=== PATIENT | male | born 1985 ===

== ENCOUNTER 2018-11-12 02:05 | Day surgery (SDC) | payer OTHER ==
[~2018-11-12] VITALS: Ht 185.4 cm; Wt 90.7 kg
[~2018-11-12 02:05] MED LIST: ALUMINUM PO; MULT1CAP59 PO
[2018-11-12] MEDS ORDERED: fentaNYL CITR 100 MCG/2 ML AMP ONE ×2 (12:15→15:59)
[2018-11-12] MEDS ORDERED: ONDANSETRON 4 MG/2 ML VIAL ONE (12:15)
[2018-11-12] MEDS ORDERED: DEXAMETHASONE SOD 4 MG/ML VIAL ONE (12:15)
[2018-11-12] MEDS ORDERED: LIDOCAINE MPF 1% 5 ML VIAL ONE (12:15)
[2018-11-12] MEDS ORDERED: PROPOFOL EMUL(*) 10MG/ML 20 ML 20 ML ONE (12:15)
[2018-11-12] MEDS ORDERED: KETAMINE HCL 200 MG/20 ML MDV ONE (12:16)
[2018-11-12] MEDS: NORMOSOL R SOLN(*) 1000 ML BAG 1,000 ML IV PRN ×2 (12:50→14:24)
[2018-11-12] MEDS ORDERED: CELECOXIB 200 MG CAP PO ONE (13:30)
[2018-11-12] MEDS ORDERED: MIDAZOLAM 2 MG/2 ML VIAL IVP PRN (13:30)
[2018-11-12] MEDS ORDERED: ceFAZolin(*) 2GM/D5W 50ML 50 ML IVPB ONE (13:30)
[2018-11-12] MEDS ORDERED: FAMOTIDINE 20 MG TAB PO ONE (13:30)
[2018-11-12] MEDS ORDERED: LIDOCAINE/SOD BICARB 8.4% SYR ID ONE (13:30)
[2018-11-12 13:43] VITALS: BP 116/68
[2018-11-12] MEDS ORDERED: ROPIVACAINE 0.2% 20 ML VIAL ONE (14:22)
[2018-11-12] MEDS ORDERED: HYDR-653 PO (15:47)
[2018-11-12] MEDS ORDERED: APAP/HYDROCODONE 325/5 TAB ONE ×2 (16:21→16:22)
[2018-11-12 16:45] VITALS: BP 131/84
[2018-11-12 16:49] VITALS: BP 121/79
--- NOTE | 2018-11-12 16:52 | OPERATIVE REPORT 1 ---
EVENT DATE: November 12, 2018 SURGEON: Cricket Reeder MD ANESTHESIOLOGIST: Alejo Love MD ANESTHESIA: General LMA. TENONER OPERATOR: ZENOBIA Stacy PREOPERATIVE DIAGNOSIS Left fifth finger proximal interphalangeal joint fracture of the distal portion of the proximal phalanx, which was intra-articular and displaced. POSTOPERATIVE DIAGNOSIS Left fifth finger proximal interphalangeal joint fracture of the distal portion of the proximal phalanx, which was intra-articular and displaced. PROCEDURE PERFORMED Closed reduction and percutaneous pinning of the left proximal phalanx fracture at the distal end at the level of the proximal interphalangeal joint, which was intra-articular. FINDINGS The patient had a displaced intra-articular fracture that we were able to reduce closed. ESTIMATED BLOOD LOSS Minimal. DRAINS None. COMPLICATIONS None. IMPLANTS USED Two 0.054 K-wires. SPECIMENS None. TOURNIQUET TIME Not applicable. INDICATIONS AND HISTORY This patient is a 33-year-old male who 3-1/2 to four weeks ago was playing volleyball and jammed his finger. He initially went in, and they told him just to watch it for a while, and when he was not getting better over three or four days and it was starting to angle, they had him come in to see us. An x-ray revealed that he had a fracture that was intra-articular of the distal portion of the proximal phalanx into the level of the PIP joint, and so therefore, we talked about the implications of this as well as the risks and benefits associated with surgery and wanted to go ahead with an attempt at a closed reduction and percutaneous pinning associated with this. I think that was very reasonable secondarily due to the fact that it did seem to still move, and the fracture line was still visible on the x-rays. So therefore, we talked about the implications of this and risks and benefits, and informed consent was obtained at the last visit. We told him he may still have some angulation associated with it, and he says he is okay with that. DESCRIPTION OF PROCEDURE As the patient was brought in the operating room, he and the procedure were both verified. He was placed supine on the operating table and induced and intubated by Anesthesia. The left upper extremity was then prepped and draped in the usual fashion. A timeout was observed verifying the correct patient and procedure. First, initial x-rays were taken showing the depressed fragment on the radial side of the distal aspect of the proximal phalanx on the fifth finger and a little bit of displacement in the sagittal plane. We were then able to perform a closed reduction and get it back up into a more natural state. We also were able to straighten the finger fully with a closed manipulation associated with this. Once I was able to do this, I was then able to put a pin from a radial to ulnar direction through the condyles in order to pin it in place. This then restored the condylar aspect. He did still have some angle associated with the finger, but we left this in place as the bone was in adequate reduction. I then put a second pin from a radial to ulnar direction, verifying that it was in good position and then verifying on the C-arm images that everything was in excellent position associated with it. I then cut and bent the pins. Final C-arm images were taken, and then we did put the hand through a flexion and extension movement. It did show a little bit of rotation at the MCP joint, not at the PIP joint before going in, so we splinted him with a spacer in between these two to try and keep the rotational aspects better. We dressed everything with Xeroform gauze 4 x 4's and then anesthetized the finger with a lidocaine block and then put him in an ulnar gutter splint with once again the finger derotated to try to help this out at the MCP joint. The patient was then awakened, extubated, and transferred to PACU in stable condition. CATHERINE
== END 2018-11-12 16:30 | disposition home or self-care (01) ==
LOC: OR 02:05
PROVIDERS: ATTEND Orthopaedic Surgery
DX: S62.617A Displaced fracture of proximal phalanx of left little finger, initial encounter for closed fracture (principal)
CPT/HCPCS: 26742; 76000; A4565; C1713; J1100; J2001; J2250; J2405; J2704; J2795; J3010; J3490